=== PATIENT | female | born 1990 | race Caucasian/White ===

== ENCOUNTER 2021-09-18 12:53 | Emergency (ER) | payer SELFPAY ==
[2021-09-18] MEDS ORDERED: Ketorolac Tromethamine 30 MG/ML VIAL ONE (14:26)
[2021-09-18 17:15] LABS: SARS-CoV-2 NAA Rapid Test Not Detected (NotDetected)
== END 2021-09-18 14:57 | disposition home or self-care (01) ==
LOC: ERS 12:53
DX: R51.9 Headache, unspecified (principal); H66.93 Otitis media, unspecified, bilateral; F17.210 Nicotine dependence, cigarettes, uncomplicated; Z20.822 Contact with and (suspected) exposure to COVID-19
CPT/HCPCS: 96372; 99284; J1885

== ENCOUNTER 2021-10-29 01:25 | Emergency (ER) | payer SELFPAY ==
[2021-10-29] MEDS ORDERED: HYDROcodone/Acetaminophen 5/325 mg Tablet ONE (01:41)
== END 2021-10-29 01:46 | disposition home or self-care (01) ==
LOC: ERS 01:25
DX: K08.89 Other specified disorders of teeth and supporting structures (principal); F17.210 Nicotine dependence, cigarettes, uncomplicated
CPT/HCPCS: 99282

== ENCOUNTER 2022-01-12 21:37 | Emergency (ER) | payer SELFPAY ==
[2022-01-13] MEDS ORDERED: HYDROcodone/Acetaminophen 5/325 mg Tablet ONE (00:12)
== END 2022-01-13 00:14 | disposition home or self-care (01) ==
LOC: ERS 21:37
DX: K02.9 Dental caries, unspecified (principal); F17.210 Nicotine dependence, cigarettes, uncomplicated; F17.290 Nicotine dependence, other tobacco product, uncomplicated
CPT/HCPCS: 99282

== ENCOUNTER 2022-01-30 20:51 | Emergency (ER) | payer SELFPAY ==
[2022-01-30] MEDS ORDERED: Dexameth. Sod Phosp. 10 MG/ML (CHEMO USE ONLY) ONE (21:24)
[2022-01-30] MEDS ORDERED: diphenhydrAMINE 25 MG CAP ONE (21:24)
== END 2022-01-30 21:40 | disposition home or self-care (01) ==
LOC: ERS 20:51
DX: L23.7 Allergic contact dermatitis due to plants, except food (principal); F17.210 Nicotine dependence, cigarettes, uncomplicated
CPT/HCPCS: 99283; J1100